=== PATIENT | male | born 1990 | race Two or more races ===

== ENCOUNTER 2023-08-23 23:31 | Emergency (ER) | payer MEDICAID, OTHER ==
[~2023-08-23] VITALS: Ht 162.6 cm; Wt 79.0 kg
[2023-08-23 23:44] VITALS: BP 143/103; PULSE 82; RESP 18; O2SAT 98
[2023-08-24] MEDS ORDERED: ESCI20TA PO (01:35)
== END 2023-08-24 02:11 | disposition left against medical advice (07) ==
LOC: ER 23:31
DX: F32.9 Major depressive disorder, single episode, unspecified (principal); Z91.040 Latex allergy status